=== PATIENT | female | born 1960 | race Caucasian/White ===

== ENCOUNTER 2019-02-24 09:36 | Inpatient (IN) | payer BC ==
[2019-02-24] MEDS ORDERED: SODIUM CHLORIDE 0.9% 1,000 ML IV STA (10:14)
[2019-02-24 10:50] LABS: Basophils # (A) 0.1 k/uL (0-0.2); Basophils % (A) 1 %; Eosinophils # (A) 0.4 k/uL (0-0.7); Eosinophils % (A) 3 %; HCT 43.8 % (34.0-46.0); HGB 14.2 gm/dL (11.4-16.0); Lymphocytes # (A) 2.1 k/uL (1.0-4.8); Lymphocytes % (A) 16 %; MCH 28.3 pg (25.0-35.0); MCHC 32.4 g/dL (31.0-37.0); MCV 87.4 fL (80.0-100.0); Mean Platelet Volume 7.1; Monocytes # (A) 0.8 k/uL (0-1.0); Monocytes % (A) 6 %; Neutrophils # (A) 9.9 k/uL (1.3-7.7); Neutrophils % (A) 73 %; Platelet Count 335 k/uL (150-450); RBC 5.02 m/uL (3.80-5.40); RDW 14.9 % (11.5-15.5); WBC 13.5 k/uL (3.8-10.6)
[2019-02-24] MEDS ORDERED: MORPHINE SULFATE 4 MG/ML SYRINGE IVP STA (10:54)
[2019-02-24] MEDS ORDERED: KETOROLAC 30 MG/ML 1 ML VIAL IVP STA (10:54)
[2019-02-24] MEDS ORDERED: PANTOPRAZOLE 40 MG/10 ML VIAL IVP STA (10:54)
[2019-02-24 10:56] LABS: Albumin 4.3 g/dL (3.5-5.0); Potassium 4.1 mmol/L (3.5-5.1); Total Bilirubin 0.7 mg/dL (0.2-1.3); Total Protein 7.6 g/dL (6.3-8.2)
[2019-02-24 11:28] LABS: Appearance,Urine Clear (Clear); Bilirubin,Urine Negative (Negative); Blood,Urine Negative (Negative); Color,Urine Colorless; Glucose,Urine (UA) Negative (Negative); Ketones,Urine Negative (Negative); Leukocyte Esterase,Urine Negative (Negative); Nitrite,Urine Negative (Negative); Protein,Urine Negative (Negative); Specific Gravity,Urine 1.003 (1.001-1.035); Urobilinogen,Urine <2.0 mg/dL (<2.0)
--- NOTE | 2019-02-24 11:40 | CT ---
EXAMINATION TYPE: CT abdomen pelvis w con DATE OF EXAM: 02/24/2019 COMPARISON: None HISTORY: Epigastric pain, vomiting CT DLP: 1205.2 mGycm CONTRAST: CT scan of the abdomen and pelvis is performed without Oral Contrast and with IV Contrast, patient in jected with 100 mL of Isovue 300. FINDINGS: LUNG BASES-: No visible nodule. No infiltrate. LIVER/GB: There is evidence of cholelithiasis. There is wall calcification of the gallbladder noted as well as wall thickening. No pericholecystic fluid identified. No space occupying hepatic lesion. Biliary tree is of normal caliber. PANCREAS: No inflammation. No distinct mass. SPLEEN: No splenic enlargement. No lesion seen. ADRENALS: No nodule. No thickening. KIDNEYS/BLADDER: No hydronephrosis. No nephrolithiasis. Simple cyst left kidney measures 2.8 cm. Th e remainder of the kidneys are free of mass lesion. Urinary bladder grossly unremarkable. BOWEL: Normal appendix. Normal bowel caliber. No inflammation. GENITAL ORGANS: No gross abnormality. LYMPH NODES: No greater than 1cm abdominal or pelvic lymph nodes are appreciated. AORTA: No significant abnormality. OSSEOUS STRUCTURES: No significant abnormality is seen. OTHER: Trace free fluid within the pelvis noted. IMPRESSION: 1. Correlate for acute cholecystitis.
[2019-02-24] MEDS ORDERED: cefTRIAXone IN SWFI 1,000 MG/10 ML SYRINGE IVP STA (11:57)
--- NOTE | 2019-02-24 11:57 | ED ---
Abdominal Pain HPI - General Source: patient, RN notes reviewed, old records reviewed Mode of arrival: ambulatory Limitations: no limitations <Cassandra Johnson - Last Filed: 02/24/19 12:25> <Tanner Johnson - Last Filed: 02/24/19 14:45> - General Chief Complaint: Abdominal Pain Stated Complaint: Epigastic/RUQ pain Time Seen by Provider: 02/24/19 10:13 - History of Present Illness Initial Comments: Patient is a 58-year-old female who presents emergency department today with 3 days of nausea vomiting, epigastric pain. She reports that she's had some pain running from the right lower quadrant to the right upper quadrant and sometimes into her back. She states that she's had some chills. She has not been eating much. She did have one piece of toast today. Symptoms seem to be worse after eating. She was recently constipated but did have a bowel movement yesterday. Denies any surgical history her past medical history. (Cassandra Johnson) - Related Data Home Medications Medication Instructions Recorded Confirmed Sinus Medication (Unknown Otc) 1 tab PO DAILY 02/24/19 02/24/19 Allergies Allergy/AdvReac Type Severity Reaction Status Date / Time latex Allergy Rash/Hives Verified 02/24/19 13:19 nickel Allergy Rash/Hives Verified 02/24/19 13:19 Review of Systems ROS Other: All systems not noted in ROS Statement are negative. <Cassandra Johnson - Last Filed: 02/24/19 12:25> ROS Other: All systems not noted in ROS Statement are negative. <Tanner Johnson - Last Filed: 02/24/19 14:45> ROS Statement: Those systems with pertinent positive or pertinent negative responses have been documented in the HPI. Past Medical History Past Medical History: No Reported History History of Any Multi-Drug Resistant Organisms: None Reported Past Surgical History: Tubal Ligation Additional Past Surgical History / Comment(s): D&C, thoracentesi Past Psychological History: No Psychological Hx Reported Smoking Status: Never smoker Past Alcohol Use History: None Reported Past Drug Use History: None Reported <Cassandra Johnson - Last Filed: 02/24/19 12:25> General Exam Limitations: no limitations <Cassandra Johnson - Last Filed: 02/24/19 12:25> - General Exam Comments Initial Comments: 58-year-old female. Alert and oriented. No significant distress. General: Well appearing, well nourished, in no distress. Oriented x 3, normal mood and affect . Ambulating without difficulty. Skin: Good turgor, no rash, unusual bruising or prominent lesions Hair: Normal texture and distribution. HEENT: Head: Normocephalic, atraumatic, no visible or palpable masses, depressions, or scaring. Eyes: Visual acuity intact, conjunctiva clear, sclera non-icteric, EOM intact, PERRL. Ears: EACs clear, TMs translucent & cone of light visualized. hearing intact. Nose: No external lesions, mucosa non-inflamed, septum and turbinates normal Mouth: Mucous membranes moist, no mucosal lesions. Teeth/Gums: No obvious caries or periodontal disease. No gingival inflammation or significant resorption. Pharynx: Mucosa non-inflamed, no tonsillar hypertrophy or exudate Neck: Supple, without lesions, bruits, or adenopathy, thyroid non-enlarged and non-tender Heart: No cardiomegaly or thrills; regular rate and rhythm, no murmur or gallop Lungs: Clear to auscultation and percussion Abdomen: Patient has some right upper quadrant right lower quadrant tenderness. Bowel sounds are normal. Back: Spine normal without deformity or tenderness, no CVA tenderness Extremities: No amputations or deformities, cyanosis, edema or varicosities, peripheral pulses intact Musculoskeletal: Normal gait and station. No misalignment, asymmetry, crepitation, defects, tenderness, masses, effusions, decreased range of motion, instability, atrophy or abnormal strength or tone in the head, neck, spine, ribs, pelvis or extremities. Neurologic: CN 2-12 normal. Sensation to pain, touch, and proprioception normal. DTRs normal in upper and lower extremities. No pathologic reflexes. (Cassandra Johnson) Course <Tanner Johnson - Last Filed: 02/24/19 14:45> Vital Signs 02/24/19 02/24/19 02/24/19 10:08 13:06 13:48 Temperature 98.6 F 98.2 F Pulse Rate 90 76 71 Respiratory 18 16 18 Rate Blood Pressure 130/82 148/79 142/80 O2 Sat by Pulse 98 97 98 Oximetry - Reevaluation(s) Reevaluation #1: 02/24/19 13:21 Case was discussed with practitioner Cassandra. Case was also earlier discussed with Dr. parnell, covering for surgical call who recommends medical admission and will consult. Dr. Linares has been paged for admission. 02/24/19 14:45 Case was discussed with Dr. Linares earlier, who agreed to admission. (Tanner Johnson) Medical Decision Making - Lab Data Result diagrams: 02/24/19 10:35 02/24/19 10:35 - Radiology Data Radiology results: report reviewed <Cassandra Johnson - Last Filed: 02/24/19 12:25> - Lab Data Result diagrams: 02/24/19 10:35 02/24/19 10:35 <Tanner Johnson - Last Filed: 02/24/19 14:45> - Medical Decision Making This is a 58-year-old female presents for instructed to 3 days of nausea v omiting, right upper quadrant abdominal pain. At this time Patient has some epigastric pain as well. Patient has tenderness on exam. Vital signs are stable. She does report nausea vomiting. No skin past medical history. She does report she's had a 20 pound weight loss after diet changes. At this time patient's labwork was reviewed. Mild leukocytosis. Chemstrip panels are unremarkable. With due to significant tenderness Patient had CT abdomen and pelvis. His evidence of acute cholecystitis. Patient received blood cultures and started on Rocephin and Flagyl. Patient's case discussed with Dr. Johnson. (Cassandra Johnson) - Lab Data Lab Results 02/24/19 02/24/19 02/24/19 Range/Units 10:35 10:35 11:10 WBC 13.5 H (3.8-10.6) k/uL RBC 5.02 (3.80-5.40) m/uL Hgb 14.2 (11.4-16.0) gm/dL Hct 43.8 (34.0-46.0) % MCV 87.4 (80.0-100.0) fL MCH 28.3 (25.0-35.0) pg MCHC 32.4 (31.0-37.0) g/dL RDW 14.9 (11.5-15.5) % Plt Count 335 (150-450) k/uL Neutrophils % 73 % Lymphocytes % 16 % Monocytes % 6 % Eosinophils % 3 % Basophils % 1 % Neutrophils # 9.9 H (1.3-7.7) k/uL Lymphocytes # 2.1 (1.0-4.8) k/uL Monocytes # 0.8 (0-1.0) k/uL Eosinophils # 0.4 (0-0.7) k/uL Basophils # 0.1 (0-0.2) k/uL Sodium 140 (137-145) mmol/L Potassium 4.1 (3.5-5.1) mmol/L Chloride 102 (98-107) mmol/L Carbon Dioxide 29 (22-30) mmol/L Anion Gap 9 mmol/L BUN 11 (7-17) mg/dL Creatinine 0.86 (0.52-1.04) mg/dL Est GFR (CKD-EPI)AfAm 86 (>60 ml/min/1.73 sqM) Est GFR (CKD-EPI)NonAf 74 (>60 ml/min/1.73 sqM) Glucose 102 H (74-99) mg/dL Calcium 10.0 (8.4-10.2) mg/dL Total Bilirubin 0.7 (0.2-1.3) mg/dL AST 19 (14-36) U/L ALT 31 (9-52) U/L Alkaline Phosphatase 77 (38-126) U/L Total Protein 7.6 (6.3-8.2) g/dL Albumin 4.3 (3.5-5.0) g/dL Amylase 50 (30-110) U/L Lipase 109 (23-300) U/L Urine Color Colorless Urine Appearance Clear (Clear) Urine pH 6.0 (5.0-8.0) Ur Specific [place] 1.003 (1.001-1.035) Urine Protein Negative (Negative) Urine Glucose (UA) Negative (Negative) Urine Ketones Negative (Negative) Urine Blood Negative (Negative) Urine Nitrite Negative (Negative) Urine Bilirubin Negative (Negative) Urine Urobilinogen <2.0 (<2.0) mg/dL Ur Leukocyte Esterase Negative (Negative) - Radiology Data CT abdomen and pelvis is correlating for acute cholecystitis. (Cassandra Johnson) Disposition Is patient prescribed a controlled substance at d/c from ED?: No Time of Disposition: 12:25 <Cassandra Johnson - Last Filed: 02/24/19 12:25> <Tanner Johnson - Last Filed: 02/24/19 14:45> Clinical Impression: Acute cholecystitis Disposition: ADMITTED IP TO THIS HOSP Condition: Good
[2019-02-24] MEDS ORDERED: LORazepam 2 MG/ML INJ IV PRN (12:26)
[2019-02-24] MEDS ORDERED: NALOXONE 0.4 MG/ML 1 ML VIAL IV PRN (12:26)
[2019-02-24] MEDS ORDERED: ONDANSETRON 4 MG/2 ML VIAL IVP PRN (12:26)
[2019-02-24] MEDS ORDERED: metroNIDAZOLE-NS PMX 500 MG in SALINE 1 100ML.BAG IVPB STA (12:26)
[2019-02-24] MEDS ORDERED: HYDROmorphone 0.5 MG/0.5 ML SYRINGE IVP PRN (12:26)
[2019-02-24] MEDS ORDERED: MORPHINE SULFATE 4 MG/ML SYRINGE IV PRN (12:26)
[2019-02-24] MEDS ORDERED: SODIUM CHLORIDE 0.9% 1,000 ML IV SCH (12:30)
[2019-02-24 14:15] VITALS: BMI 34.2
--- NOTE | 2019-02-24 17:09 | P.GSCN ---
History of Present Illness Consult date: 02/24/19 History of present illness: This is a 58-year-old female presents with a chief complaint of right upper quadrant and midepigastric pain. She has nausea and vomiting for the last 2 days. She's never had pain like this before in the past. She has no significant past medical or surgical history however she does not regularly see a doctor. She states she's been unable to keep much food down. She states nothing is made the pain better other than the pain medication and gave her in the emergency room. Eating and vomiting makes the pain worse. She denies any fevers or chills she denies any recent travel she denies any diarrhea she denies any sick contacts. No other complaints at this time Past Medical History Past Medical History: No Reported History History of Any Multi-Drug Resistant Organisms: None Reported Past Surgical History: Tubal Ligation Additional Past Surgical History / Comment(s): D&C, thoracentesi Past Psychological History: No Psychological Hx Reported Smoking Status: Never smoker Past Alcohol Use History: None Reported Past Drug Use History: None Reported - Past Family History Mother History Unknown: Yes Medications and Allergies Home Medications Medication Instructions Recorded Confirmed Type Sinus Medication (Unknown Otc) 1 tab PO DAILY 02/24/19 02/24/19 History Allergies Allergy/AdvReac Type Severity Reaction Status Date / Time latex Allergy Rash/Hives Verified 02/24/19 13:19 nickel Allergy Rash/Hives Verified 02/24/19 13:19 Surgical - Exam Osteopathic Statement: *. No significant issues noted on an osteopathic structural exam other than those noted in the History and Physical/Consult. Vital Signs Temp Pulse Resp BP Pulse Ox 98.6 F 90 18 130/82 98 02/24/19 10:08 02/24/19 10:08 02/24/19 10:08 02/24/19 10:08 02/24/19 10:08 - General well developed, well nourished, no distress - Eyes PERRL - Neck trachea midline - Respiratory normal expansion, normal respiratory effort - Cardiovascular Rhythm: regular - Abdomen mild TTP RUQ mid epigastric. no RRG Abdomen: soft - Integumentary no rash - Neurologic normal coordination, normal sensation - Psychiatric oriented to time, oriented to person, oriented to place Results - Labs 02/24/19 10:35 02/24/19 10:35 Abnormal Lab Results - Last 24 Hours (Table) 02/24/19 02/24/19 Range/Units 10:35 10:35 WBC 13.5 H (3.8-10.6) k/uL Neutrophils # 9.9 H (1.3-7.7) k/uL Glucose 102 H (74-99) mg/dL Diabetes panel 02/24/19 Range/Units 10:35 Sodium 140 (137-145) mmol/L Potassium 4.1 (3.5-5.1) mmol/L Chloride 102 (98-107) mmol/L Carbon Dioxide 29 (22-30) mmol/L BUN 11 (7-17) mg/dL Creatinine 0.86 (0.52-1.04) mg/dL Glucose 102 H (74-99) mg/dL Calcium 10.0 (8.4-10.2) mg/dL AST 19 (14-36) U/L ALT 31 (9-52) U/L Alkaline Phosphatase 77 (38-126) U/L Total Protein 7.6 (6.3-8.2) g/dL Albumin 4.3 (3.5-5.0) g/dL Calcium panel 02/24/19 Range/Units 10:35 Calcium 10.0 (8.4-10.2) mg/dL Albumin 4.3 (3.5-5.0) g/dL Pituitary panel 02/24/19 Range/Units 10:35 Sodium 140 (137-145) mmol/L Potassium 4.1 (3.5-5.1) mmol/L Chloride 102 (98-107) mmol/L Carbon Dioxide 29 (22-30) mmol/L BUN 11 (7-17) mg/dL Creatinine 0.86 (0.52-1.04) mg/dL Glucose 102 H (74-99) mg/dL Calcium 10.0 (8.4-10.2) mg/dL Adrenal panel 02/24/19 Range/Units 10:35 Sodium 140 (137-145) mmol/L Potassium 4.1 (3.5-5.1) mmol/L Chloride 102 (98-107) mmol/L Carbon Dioxide 29 (22-30) mmol/L BUN 11 (7-17) mg/dL Creatinine 0.86 (0.52-1.04) mg/dL Glucose 102 H (74-99) mg/dL Calcium 10.0 (8.4-10.2) mg/dL Total Bilirubin 0.7 (0.2-1.3) mg/dL AST 19 (14-36) U/L ALT 31 (9-52) U/L Alkaline Phosphatase 77 (38-126) U/L Total Protein 7.6 (6.3-8.2) g/dL Albumin 4.3 (3.5-5.0) g/dL - Imaging CT scan - abdomen: report reviewed, image reviewed CT scan - pelvis: report reviewed, image reviewed Assessment and Plan Assessment: Acute Cholecystitis Plan: I discussed options with the patient. Clinically she does have acute cholecystitis. She will be made nothing by mouth started on IV antibiotics. Surgical options were discussed the patient the risks benefits and alternatives to laparoscopic cholecystectomy were discussed with the patient risks including risk of bleeding infection damage to surrounding tissue need for further operation need for conversion to open and damage to common bile duct were all discussed. She stated she understood agreed and consented informed consent was obtained.
[2019-02-24] MEDS: ACETAMINOPHEN TAB 325 MG TAB PO PRN (19:50)
--- NOTE | 2019-02-24 21:33 | HP ---
HISTORY AND PHYSICAL CHIEF COMPLAINT: Abdominal pain for 5 days. HISTORY OF PRESENT ILLNESS: This is the first admission for this 58-year-old G3, P2, A1 white female. Wednesday she started to have some nausea and vomiting and mild epigastric pain, and thought she had gastroenteritis. She went to work. The pain waxed and waned and at times came back and was quite severe. She finally decided to come in the morning of her admission where she was found to have an acute cholecystitis. She has not noticed any particular food intolerance and she has not noticed jaundice, acholic stools or dark urine. She has otherwise been healthy. She has no family history of gallbladder disease. In the emergency room, her white count was 13,500. Liver enzymes are normal. Lipase is normal. Urine was clear. REVIEW OF SYSTEMS: She has had no headaches, change in vision or hearing, shortness of breath, cough, hemoptysis, sputum production, asthma, pleurisy, heart disease, hypertension, murmurs, rheumatic fever, melena, hematochezia, hematemesis, cirrhosis, diverticulosis or diverticulitis, renal failure, dysuria, frequency, urgency, incontinence, stones, etc. She does not have diabetes. Past medical history she has had a D and C. She does not take any medications. SHE IS ALLERGIC TO NICKEL AND LATEX. She does not smoke or drink. Her mother had CA of the bladder and dad of vascular disease. PHYSICAL EXAMINATION: Blood pressure 130/82, pulse 90, respirations of 18 and she is afebrile. In general, she appeared to be slightly overweight and in no acute distress. Skin color is normal. Skin is warm, dry. Lymph nodes not enlarged. Head, ears, eyes, nose, mouth, and throat were normal. Neck veins not distended. Thyroid not enlarged. CHEST: Clear. Cardiac exam is normal and the abdomen is tender over the epigastrium. Bowel sounds are present. Extremities normal. Neurologically she is intact. ADMISSION DIAGNOSIS: She is admitted to the hospital with diagnoses: Acute cholecystitis. PLAN: 1. Bed rest. 2. IV fluids. 3. Surgery consult. 4. N.p.o. 5. Analgesics. MMODL / IJN: [id number] /
[2019-02-25] MEDS: PIPERACILLIN-TAZOBACTAM 3.375 GM in SODIUM CHLORIDE 0.9% 100 ML IVPB SCH ×3 (00:26→17:00)
[2019-02-25] MEDS: ACETAMINOPHEN TAB 325 MG TAB PO PRN (07:39)
[2019-02-25 08:06] LABS: Basophils # (A) 0.1 k/uL (0-0.2); Basophils % (A) 1 %; Eosinophils # (A) 0.4 k/uL (0-0.7); Eosinophils % (A) 5 %; HCT 40.7 % (34.0-46.0); HGB 12.8 gm/dL (11.4-16.0); Hypochromasia Slight; Lymphocytes # (A) 1.4 k/uL (1.0-4.8); Lymphocytes % (A) 19 %; MCH 28.3 pg (25.0-35.0); MCHC 31.5 g/dL (31.0-37.0); MCV 89.9 fL (80.0-100.0); Mean Platelet Volume 7.1; Monocytes # (A) 0.5 k/uL (0-1.0); Monocytes % (A) 6 %; Neutrophils # (A) 5.2 k/uL (1.3-7.7); Neutrophils % (A) 68 %; Platelet Count 284 k/uL (150-450); RBC 4.53 m/uL (3.80-5.40); RDW 13.9 % (11.5-15.5); WBC 7.6 k/uL (3.8-10.6)
[2019-02-25 08:39] LABS: ALT 27 U/L (9-52); AST 31 U/L (14-36); African American GFR (CKD) >90 (>60 ml/min/1.73 sqM); Albumin 3.5 g/dL (3.5-5.0); Alkaline Phosphatase 64 U/L (38-126); Anion Gap 8 mmol/L; Blood Urea Nitrogen 11 mg/dL (7-17); Calcium 8.9 mg/dL (8.4-10.2); Carbon Dioxide 23 mmol/L (22-30); Chloride 109 mmol/L (98-107); Glucose 84 mg/dL (74-99); Potassium 4.2 mmol/L (3.5-5.1); Sodium 140 mmol/L (137-145); Total Bilirubin 0.7 mg/dL (0.2-1.3); Total Protein 6.6 g/dL (6.3-8.2)
[2019-02-25] MEDS: PANTOPRAZOLE 40 MG/10 ML VIAL IV SCH (09:17)
[2019-02-25] MEDS ORDERED: fentaNYL (PF) 50 MCG/ML 2 ML AMP ONE (12:40)
[2019-02-25] MEDS ORDERED: HEPARIN SODIUM,PORCINE 5,000 UNIT/ML 1 ML VIAL ONE (12:40)
[2019-02-25] MEDS ORDERED: NEOSTIGMINE 1 MG/ML 10 ML VIAL ONE (12:40)
[2019-02-25] MEDS ORDERED: GLYCOPYRROLATE 0.2 MG/ML 2 ML VIAL ONE (12:40)
[2019-02-25] MEDS ORDERED: MIDAZOLAM 2 MG/2 ML VIAL ONE (12:40)
[2019-02-25] MEDS ORDERED: SUCCINYLCHOLINE CHLORIDE 100 MG/5 ML SYR IV ONE (12:40)
[2019-02-25] MEDS ORDERED: PROPOFOL 10 MG/ML 20 ML VIAL IV ONE (12:40)
[2019-02-25] MEDS ORDERED: ROCURONIUM BROMIDE 10 MG/ML 10 ML VIAL IV ONE (12:40)
[2019-02-25] MEDS ORDERED: LIDOCAINE 1% INJ 10MG/ML (20 ML MDV) ONE (12:40)
[2019-02-25] MEDS ORDERED: LACTATED RINGERS 1,000 ML IV ONE ×2 (12:43→12:59)
[2019-02-25] MEDS ORDERED: BUPIVACAINE (PF) 0.25% 30 ML VIAL SQ ONE ×2 (13:00)
--- NOTE | 2019-02-25 14:01 | P.OP ---
Date of Procedure: 02/25/19 Preoperative Diagnosis: Acute cholecystitis Postoperative Diagnosis: Acute cholecystitis Anesthesia: KEYURA Surgeon: Gino Golden Estimated Blood Loss (ml): 10 Condition: stable Disposition: PACU Description of Procedure: Suite remained in supine position underwent general endotracheal anesthesia per Department of anesthesia prepped and draped in usual sterile fashion timeout performed correct patient correct procedure correct site was verified. Using a 12 mm Visiport the abdomen was entered just to the right of the umbilicus. Abdomen was insufflated no injuries were noted. 35 mm ports were placed in the right upper quadrant under direct visualization. The gallbladder was noted to be acutely inflamed and distended. A letter was grasped and retracted cephalad. The adhesions to the gallbladder taken down bluntly the Snyder's pouch was identified and grasped and retracted the cystic duct and cystic artery were sk eletonized critical view of safety was obtained the cystic duct and artery were duly clipped and ligated. The gallbladder is removed from the liver bed using Bovie a left cautery. Hemostasis was achieved abdomen was irrigated the liver bed was irrigated and suctioned. The gallbladder was removed through the periumbilical port site. This was done in an Endo Catch bag the 12 m port site was then closed with 0 Vicryl interrupted sutures with 8 of a Tan-Mira suture passer. Abdomen was desufflated and all ports removed under direct visualization hemostasis was noted. The skin incisions were closed with 4-0 Monocryl interrupted subcuticular sutures. Skin glue was applied patient tolerated the procedure well there are no apparent complications
[2019-02-25] MEDS ORDERED: HYDROcodone/APAP 5-325MG 1 EACH TAB PO PRN (14:02)
--- NOTE | 2019-02-25 14:16 | PN ---
PROGRESS NOTE CHIEF COMPLAINT: Cholecystitis. HISTORY OF PRESENT ILLNESS: This lady has been stable during the night. She is going to the OR today. PHYSICAL EXAMINATION: Chest is clear. Cardiac exam is normal. She is afebrile. IMPRESSION: Acute cholecystitis. PLAN: Cholecystectomy today. PAUL / [place]: [id number] /
[2019-02-25] MEDS ORDERED: KETOROLAC 30 MG/ML 1 ML VIAL IVP ONE (14:33)
[2019-02-25] MEDS: SODIUM CHLORIDE 0.9% 1,000 ML IV SCH (17:01)
[2019-02-26] MEDS: ACETAMINOPHEN TAB 325 MG TAB PO PRN (00:16)
[2019-02-26] MEDS: PIPERACILLIN-TAZOBACTAM 3.375 GM in SODIUM CHLORIDE 0.9% 100 ML IVPB SCH ×2 (00:17→09:07)
[2019-02-26 09:00] LABS: ALT 46 U/L (9-52); AST 31 U/L (14-36); African American GFR (CKD) >90 (>60 ml/min/1.73 sqM); Albumin 3.4 g/dL (3.5-5.0); Alkaline Phosphatase 66 U/L (38-126); Anion Gap 5 mmol/L; Blood Urea Nitrogen 14 mg/dL (7-17); Calcium 8.9 mg/dL (8.4-10.2); Carbon Dioxide 28 mmol/L (22-30); Chloride 108 mmol/L (98-107); Glucose 109 mg/dL (74-99); Potassium 4.2 mmol/L (3.5-5.1); Sodium 141 mmol/L (137-145); Total Bilirubin 0.5 mg/dL (0.2-1.3); Total Protein 6.5 g/dL (6.3-8.2)
[2019-02-26] MEDS: PANTOPRAZOLE 40 MG/10 ML VIAL IV SCH (09:07)
[2019-02-26 09:52] VITALS: BP 144/82; PULSE 77; RESP 20; TEMP 98.5
[2019-02-26 10:07] LABS: Basophils % (A) 0 %; Eosinophils % (A) 0 %; HCT 37.5 % (34.0-46.0); HGB 12.2 gm/dL (11.4-16.0); Lymphocytes # (A) 1.4 k/uL (1.0-4.8); Lymphocytes % (A) 12 %; MCH 29.1 pg (25.0-35.0); MCHC 32.6 g/dL (31.0-37.0); MCV 89.1 fL (80.0-100.0); Mean Platelet Volume 8.6; Monocytes # (A) 0.6 k/uL (0-1.0); Monocytes % (A) 5 %; Neutrophils # (A) 8.9 k/uL (1.3-7.7); Neutrophils % (A) 81 %; Platelet Count 297 k/uL (150-450); RBC 4.21 m/uL (3.80-5.40); RDW 15.1 % (11.5-15.5)
[2019-02-26] MEDS: SODIUM CHLORIDE 0.9% 1,000 ML IV SCH (10:38)
--- NOTE | 2019-02-26 13:54 | P.PN ---
Subjective Progress Note Date: 02/26/19 Patient is doing well no complaints. Tolerating diet. Objective - Vital Signs Vital signs: Vital Signs Temp 98.5 F 02/26/19 08:32 Pulse 77 02/26/19 08:32 Resp 20 02/26/19 08:32 BP 144/82 02/26/19 08:32 Pulse Ox 96 02/26/19 08:32 Intake & Output 02/25/19 02/26/19 02/26/19 18:59 06:59 18:59 Intake Total 700 Output Total 10 550 Balance 690 -550 Intake: IV 700 Output: Urine 550 Estimated Blood Loss 10 - Constitutional General appearance: Present: cooperative - Respiratory Details: nonalbored - Cardiovascular Rhythm: regular - Gastrointestinal Gastrointestinal Comment(s): Incisions CDI expected TTP - Labs CBC & Chem 7: 02/26/19 08:25 02/26/19 08:25 Labs: Abnormal Lab Results - Last 24 Hours (Table) 02/26/19 02/26/19 Range/Units 08:25 08:25 WBC 11.0 H (3.8-10.6) k/uL Neutrophils # 8.9 H (1.3-7.7) k/uL Chloride 108 H (98-107) mmol/L Glucose 109 H (74-99) mg/dL Albumin 3.4 L (3.5-5.0) g/dL Microbiology - Last 24 Hours (Table) 02/24/19 12:53 Blood Culture - Preliminary Blood No Growth after 24 hours Assessment and Plan Assessment: Acute Cholecystitis POD#1 lap micha Plan: Patient is stable for discharge from surgical standpoint, she may follow up in my office in 2 weeks
--- NOTE | 2019-02-26 23:47 | DS ---
DISCHARGE SUMMARY CHIEF COMPLAINT: Abdominal pain. HISTORY OF PRESENT ILLNESS AND PHYSICAL EXAM: Details of this lady's history and physical can be found in the initial workup. LABORATORY STUDIES: While she was in the hospital, she had lab studies, details which can be found in the laboratory section of her chart. COURSE IN HOSPITAL: After admission, she was placed on bedrest, started on intravenous fluids and seen by surgery. She was taken to the operating room for an uneventful laparoscopic cholecystectomy. She was doing well and it was felt she could return home on the and she will go home on her usual diet, light activity and be seen in the office by Surgery and by me in followup. MMODL / IJN: [id number] /
== END 2019-02-26 14:35 | disposition home or self-care (01) | DRG 419 ==
LOC: EC 09:36 → 6PED 13:13
PROVIDERS: ADMIT Family Medicine; ATTEND Family Medicine
PROC: 0FT44ZZ Resection of Gallbladder, Percutaneous Endoscopic Approach (ICD-10-PCS; principal; 2019-02-24)
DX: K81.0 Acute cholecystitis (principal); K21.9 Gastro-esophageal reflux disease without esophagitis; E66.9 Obesity, unspecified; Z68.33 Body mass index [BMI] 33.0-33.9, adult; Z91.040 Latex allergy status; Z91.048 Other nonmedicinal substance allergy status; Z79.899 Other long term (current) drug therapy; Z80.52 Family history of malignant neoplasm of bladder; Z82.49 Family history of ischemic heart disease and other diseases of the circulatory system; Z98.51 Tubal ligation status
CPT/HCPCS: 36415; 74177; 80053; 81003; 82150; 83690; 85025; 87040; 88304; 96361; 96374; 96375; 99285

== ENCOUNTER → 2024-06-15 | Outpatient (CLI) | payer MEDICARE ==
--- NOTE | 2024-06-18 16:30 | MM ---
Reason for Exam: Screening (asymptomatic). Baseline mammogram. Patient History: Menarche at age 11. First Full-Term at age 19. Postmenopausal. Patient has history of breast feeding. Risk Values: Karla 5 year model risk: 1.5%. NCI Lifetime model risk: 5.6%. Prior Study Comparison: Patient's first Mammogram. Tissue Density: There are scattered areas of fibroglandular density. Findings: Analyzed By CAD. The pattern is symmetrical. There are some focal asymmetries in the craniocaudal projection right breast. Additional evaluation recommended. Breast:No suspicious groups of microcalcifications, spiculated or lobular masses, architectural distortion or other secondary signs of malignancy are mammographically apparent. Overall Assessment: Incomplete: need additional imaging evaluation, BI-RAD 0 Management: Diagnostic Mammogram of the right breast. A negative mammogram report should not preclude additional follow up of suspicious palpable abnormalities. Patient should continue monthly self breast exam. A clinical breast exam by your physician is recommended on an annual basis and results should be correlated with mammographic findings. Note on Karla scores and lifetime risk: 1. A Karla score greater than 3% is considered moderate risk. If this is the case, consider specialist referral to assess eligibility for a risk reducing agent. 2. If overall lifetime risk for the development of breast cancer is 20% or higher, the patient may qualify for future screening with alternating mammogram and breast MRI. [facility], , 06/18/2024 4:27 PM. Electronically signed and approved by: Vern Still D.O. Radiologis
== END | disposition home or self-care (01) ==
LOC: RADMAMWWP 06:50
PROVIDERS: ATTEND Family Medicine
DX: Z12.31 Encounter for screening mammogram for malignant neoplasm of breast (principal); Z78.0 Asymptomatic menopausal state; R92.323 Mammographic fibroglandular density, bilateral breasts
CPT/HCPCS: 77063; 77067

== ENCOUNTER → 2024-06-23 | Outpatient (CLI) | payer MEDICARE ==
--- NOTE | 2024-06-23 10:15 | MM ---
Reason for Exam: Additional evaluation requested from abnormal screening. Last screening mammogram was performed less than 1 month ago. Patient History: Menarche at age 11. First Full-Term at age 19. Postmenopausal. Patient has history of breast feeding. Risk Values: Karla 5 year model risk: 1.5%. NCI Lifetime model risk: 5.6%. Prior Study Comparison: 06/15/2024 Bilateral MG 3D screening mammo w/cad, [facility]. Tissue Density: Right: There are scattered areas of fibroglandular density. Findings: Analyzed By CAD. Persistent asymmetric density upper outer right breast 10 cm from the nipple measuring approximately 1 cm. Ultrasound is advised. Overall Assessment: Incomplete: need additional imaging evaluation, BI-RAD 0 Management: Diagnostic Breast Ultrasound of the right breast. . Results were given to the patient verbally at the time of exam. Patient should continue monthly self-breast exams. A clinical breast exam by your physician is recommended on an annual basis. This exam should not preclude additional follow-up of suspicious palpable abnormalities. Note on Karla scores and lifetime risk: 1. A Karla score greater than 3% is considered moderate risk. If this is the case, consider specialist referral to assess eligibility for a risk reducing agent. 2. If overall lifetime risk for the development of breast cancer is 20% or higher, the patient may qualify for future screening with alternating mammogram and breast MRI. [facility], , 06/23/2024 10:12 AM. Electronically signed and approved by: Liam Valencia M.D. Radiologis
--- NOTE | 2024-06-23 10:34 | USB ---
Reason for Exam: Additional evaluation requested from abnormal screening. Patient History: Menarche at age 11. First Full-Term at age 19. Postmenopausal. Patient has history of breast feeding. Risk Values: Karla 5 year model risk: 1.5%. NCI Lifetime model risk: 5.6%. Technique: Method: Targeted. Prior Study Comparison: 06/15/2024 Bilateral MG 3D screening mammo w/cad, [facility]. Findings: The upper outer quadrant of the right breast, the axilla of the right breast and the retroareolar of the right breast were scanned. EXAM: US breast workup limited RT DATE OF EXAM: 06/23/2024 10:16 AM COMPARISON STUDIES: PATIENT HISTORY: RISK CALCULATION: No solid or cystic masses are identified.. Overall Assessment: Probably benign, BI-RAD 3 Management: Diagnostic Mammogram of the right breast in 6 months. A clinical breast exam by your physician is recommended on an annual basis and results should be correlated with mammographic findings. This exam should not preclude additional follow-up of suspicious palpable abnormalities. Results were given to the patient verbally at the time of exam. . A clinical breast exam by your physician is recommended on an annual basis and results should be correlated with mammographic findings. This exam should not preclude additional follow-up of suspicious palpable abnormalities. Results were given to the patient verbally at the time of exam. [facility], , 06/23/2024 10:31 AM. Electronically signed and approved by: Liam Valencia M.D. Radiologis
== END | disposition home or self-care (01) ==
LOC: RADMAMWWP 09:29
PROVIDERS: ATTEND Family Medicine
DX: R92.8 Other abnormal and inconclusive findings on diagnostic imaging of breast (principal); Z78.0 Asymptomatic menopausal state; R92.321 Mammographic fibroglandular density, right breast
CPT/HCPCS: 77065; 76642; G0279; 77061

== ENCOUNTER 2024-10-17 09:18 | Day surgery (SDC) | payer MEDICARE ==
[2024-10-17] MEDS: IV FLUID CONTINUATION 1,000 ML IV ONE ×2 (09:39→10:25)
[2024-10-17 09:46] VITALS: TEMP 97.8
[2024-10-17] MEDS: LACTATED RINGERS 1,000 ML IV SCH (10:10)
[2024-10-17 10:11] LABS: Glucose,Whole Blood 111 mg/dL (70-110)
[2024-10-17] MEDS ORDERED: PHENYLEPHRINE-0.9% NACL SYG 1,000 MCG/10 ML SYRINGE ONE (10:27)
[2024-10-17] MEDS ORDERED: PROPOFOL 10 MG/ML 20 ML VIAL IV ONE (10:27)
[2024-10-17] MEDS ORDERED: LIDOCAINE 1% INJ 10MG/ML (20 ML MDV) ONE (10:27)
--- NOTE | 2024-10-17 10:30 | P.GSHP ---
History of Present Illness H&P Date: 10/17/24 Chief Complaint: Colon cancer screening 63-year-old female here for colonoscopy. She has not had 1 previously.No bowel complaints. No family history of colon cancer. Past Medical History Past Medical History: Pneumonia Additional Past Medical History / Comment(s): mitral valve prolapse -irregular heart beat. fluid drained from rt lung after pneumonia History of Any Multi-Drug Resistant Organisms: None Reported Past Surgical History: Cholecystectomy, Tubal Ligation Additional Past Surgical History / Comment(s): D&C, thoracentesis. stone in bile duct Past Anesthesia/Blood Transfusion Reactions: No Reported Reaction Smoking Status: Never smoker - Past Family History Mother History Unknown: Yes Family Medical History: Cancer Additional Family Medical History / Comment(s): bladder Brother(s) Family Medical History: Cancer Additional Family Medical History / Comment(s): penile cancer- Father Additional Family Medical History / Comment(s): blood infection- Medications and Allergies Home Medications Medication Instructions Recorded Confirmed Type Sinus Medication (Unknown Otc) 1 tab PO DAILY 02/24/19 10/17/24 History Unk Semaglutide 1 dose SQ WE 10/13/24 10/17/24 History Unk Calcium Vitamin D3 1 tab PO DAILY 10/13/24 10/17/24 History Allergies Allergy/AdvReac Type Severity Reaction Status Date / Time latex Allergy Rash/Hives Verified 10/17/24 09:47 nickel Allergy Rash/Hives Verified 10/17/24 09:47 Surgical - Exam Vital Signs Temp Pulse Resp BP Pulse Ox 97.8 F 100 14 138/84 100 10/17/24 09:45 10/17/24 09:45 10/17/24 09:45 10/17/24 09:45 10/17/24 09:45 Physical exam: General: Well-developed, well-nourished HEENT: Normocephalic, sclerae nonicteric Abdomen: Nontender, nondistended Extremities: No edema Neuro: Alert and oriented Results - Labs Abnormal Lab Results - Last 24 Hours (Table) 10/17/24 Range/Units 10:09 POC Glucose (mg/dL) 111 H (70-110) mg/dL Assessment and Plan (1) Colon cancer screening Narrative/Plan: No bowel complaints. No family history of colon cancer. Current Visit: Yes Status: Acute Code(s): Z12.11 - ENCOUNTER FOR SCREENING FOR MALIGNANT NEOPLASM OF COLON SNOMED Code(s): 857798381
--- NOTE | 2024-10-17 10:46 | P.PCN ---
Date of Procedure: 10/17/24 Procedure(s) Performed: PREOPERATIVE DIAGNOSIS: Colon cancer screening POSTOPERATIVE DIAGNOSIS: Small cecal polyp, diverticulosis PROCEDURE: Colonoscopy with snare polypectomy ANESTHESIA: MAC SURGEON: Bala Meeks M.D. SPECIMENS: Polyp ENDOSCOPIC PROCEDURE: The patient was placed on the endoscopy table in the left decubitus position. The Olympus colonoscope was inserted into the anus and passed under direct visualization to the base of the cecum. The appendiceal orifice was visualized. From that point the scope was slowly withdrawn inspecting all surfaces carefully. At the base of the cecum there was a small polyp measuring about 5 mm in size. This was removed using the snare with cautery technique. The remainder of the cecum ascending transverse descending sigmoid and rectum appeared normal. The patient's prep was slightly suboptimal limiting our visualization of some of the mucosal surfaces. Patient had extensive left-sided diverticulosis. Digital rectal examination was normal. The patient was taken to the recovery room in stable condition per anesthesia guidelines. RECOMMENDATIONS: Await biopsy results. Anticipate repeat colonoscopy 5 to 10 years. Will contact patient with timing.
[2024-10-17 11:09] VITALS: BP 141/63; PULSE 80; RESP 16
== END 2024-10-17 11:30 | disposition home or self-care (01) ==
LOC: ORWHC2ENDO 09:18
PROVIDERS: ATTEND Surgery
DX: Z12.11 Encounter for screening for malignant neoplasm of colon (principal); D12.0 Benign neoplasm of cecum; K57.30 Diverticulosis of large intestine without perforation or abscess without bleeding; I34.1 Nonrheumatic mitral (valve) prolapse; Z79.85 Long-term (current) use of injectable non-insulin antidiabetic drugs; Z91.040 Latex allergy status
CPT/HCPCS: 45385; 88305; J2003; J2704; J2371